=== PATIENT | male | born 1960 | race Caucasian/White ===

== ENCOUNTER 2024-04-22 11:37 | Emergency (ER) | payer BC ==
[~2024-04-22] VITALS: Ht 188 cm; Wt 88.5 kg
[2024-04-22 13:26] VITALS: BP 140/83; TEMP 97; O2SAT 97
== END 2024-04-22 13:28 | disposition home or self-care (01) ==
LOC: ER 11:37
DX: S86.811A Strain of other muscle(s) and tendon(s) at lower leg level, right leg, initial encounter (principal); M79.604 Pain in right leg; Z94.0 Kidney transplant status; X58.XXXA Exposure to other specified factors, initial encounter; Y93.89 Activity, other specified; Y92.89 Other specified places as the place of occurrence of the external cause; Y99.8 Other external cause status
CPT/HCPCS: A4606; A4663